=== PATIENT | female | born 1985 | race Caucasian/White ===

== ENCOUNTER 2018-11-29 07:54 | Emergency (ER) | payer OTHER ==
--- NOTE | 2018-11-29 08:15 | ED ---
Lower Extremity - HPI Summary HPI Summary: The patient is a 33 y/o F presenting to [facility] accompanied by partner with a chief complaint of sudden onset LLE pain radiating throughout the leg with the worse pain near the distal leg and calf starting this morning when she woke up at 0700. She reports that she has also noticed that the veins in her left leg near the knee have been more superficial, and there has been warmth and tingling to the area. Although the veins have been present her whole life, she noticed recent worsening. There are no new insect bites or scratches on the leg. Currently, the cramping pain is rated 5/10 in severity, and she states that the pain has decreased since onset this morning. There are no aggravating or alleviating factors, and she did not take any medications to attempt to relieve the pain [employer]. She denies palpitations, CP, SOB, pain with breathing, edema, numbness in the LLE, difficulty with ambulation, fever, chills, erythema of eyes, sore throat, cough, abdominal pain, N/V, dysuria, hematuria, rash, and dizziness. She notes that she did sit for about 8 or 9 hours yesterday, but she denies any recent long travel. About a month and half ago, she had her oral control, Enskyce, changed to continuous use from three weeks of use with fourth week as placebo pill due to migraines and nausea. She also reports current Cefdinir use for otitis media. Currently uses Imitrex for migraines and Fluoxetine for depression. FHx DVTs in mother. Nonsmoker, no EtOH, no substance use. - History of Current Complaint Chief Complaint: EDExtremityLower Stated Complaint: PAIN IN LEG PER PT Time Seen by Provider: 11/29/18 08:09 Hx Obtained From: Patient Hx Last Menstrual Period: 24 DAYS AGO Mechanism Of Injury: Unknown - woke up with pain Onset of Pain: Hours Onset/Duration: Hours - since 0700 this morning Severity Initially: Moderate Severity Currently: Mild Pain Intensity: 5 Pain Scale Used: 0-10 Numeric Timing: Constant, Lasting Hours Location: Other - throughout LLE with worse pain the distal left leg and calf Character Of Pain: Throbbing - cramping Associated Signs And Symptoms: Positive: Other - POSITIVE: tingling and warmth near the right knee with increased visibility of superficial veins; NEGATIVE: palpitations, CP, SOB, pain with breathing, edema, numbness in the LLE, difficulty with ambulation, chills, erythema of eyes, sore throat, cough, N/V, dysuria, hematuria, rash. Negative: Fever, Dizziness, Abdominal Pain Aggravating Factor(s): Nothing Alleviating Factor(s): Nothing Able to Bear Weight: Yes - Allergies/Home Medications Allergies/Adverse Reactions: Allergies Allergy/AdvReac Type Severity Reaction Status Date / Time Sulfa (Sulfonamide Allergy Hives Verified 11/29/18 08:03 Antibiotics) Home Medications: Home Medications Cefdinir [Cefdinir 300 MG CAP] 300 mg PO BID 11/29/18 [History Confirmed ] Desogestrel-Ethinyl Estradiol [Enskyce 28 Tablet] 1 each PO DAILY 11/29/18 [ History Confirmed 11/29/18] SUMAtriptan TAB* [Imitrex TAB*] 50 mg PO DAILY PRN 11/29/18 [History Confirmed 11/29/18] PMH/Surg Hx/FS Hx/Imm Hx Endocrine/Hematology History: Denies: Hx Diabetes Cardiovascular History: Denies: Hx Hypertension Respiratory History: Denies: Hx Asthma Sensory History: Denies: Hx Deafness Opthamlomology History: Reports: Hx Contacts or Glasses Neurological History: Reports: Hx Migraine - medicated with Imitrex - Surgical History Surgical History: None Surgery Procedure, Year, and Place: none Infectious Disease History: No Infectious Disease History: Denies: Hx Clostridium Difficile, Traveled Outside the [place] in Last 30 Days - Family History Known Family History: Positive: Other - DVTs in mother - Social History Alcohol Use: None Hx Substance Use: No Substance Use Type: Reports: None Hx Tobacco Use: No Smoking Status (MU): Never Smoked Tobacco Do You Chew or Dip Tobacco: No Have You Chewed or Dipped Tobacco in the LAST YEAR: No Have You Smoked in the Last Year: No Review of Systems Negative: Fever, Chills Negative: Erythema Negative: Sore Throat Negative: Chest Pain Positive: Other - NEGATIVE: pain with breathing. Negative: Shortness Of Breath , Cough Negative: Abdominal Pain, Vomiting, Nausea Negative: dysuria, hematuria Positive: Myalgia - pain radiating throughout LLE worst in the distal portion and calf, Other - NEGATIVE: difficulty with ambulation. Negative: Edema Positive: Other - increased visibility with veins in LLE with warmth . Negative : Rash Neurological: Other - POSITIVE: tingling near left knee at site of superficial veins; NEGATIVE: dizziness Negative: Numbness - in LLE All Other Systems Reviewed And Are Negative: Yes Physical Exam - Summary Physical Exam Summary: Constitutional: Well-developed, Well-nourished, Alert. (-) Distressed Skin: Engorgement of the superficial veins in the leg on the left side. Warm, Dry. HENT: Normocephalic; Atraumatic Eyes: Conjunctiva normal Neck: Musculoskeletal ROM normal neck. (-) JVD, (-) Stridor, (-) Tracheal deviation Cardio: Rhythm regular, rate normal, Heart sounds normal; Intact distal pulses; The pedal pulses are 2+ and symmetric. Radial pulses are 2+ and symmetric. (-) Murmur Pulmonary/Chest wall: Effort normal. (-) Respiratory distress, (-) Wheezes, (-) Rales Abd: Soft, (-) tenderness, (-) Distension, (-) Guarding, (-) Rebound Musculoskeletal: (-) Edema Lymph: (-) Cervical adenopathy Neuro: Alert, Oriented x3 Psych: Mood and affect Normal Triage Information Reviewed: Yes Vital Signs On Initial Exam: Initial Vitals Temp Pulse Resp BP Pulse Ox 99.1 F 102 18 138/93 99 11/29/18 08:01 11/29/18 08:01 11/29/18 08:01 11/29/18 08:01 11/29/18 08:01 Vital Signs Reviewed: Yes Diagnostics - Vital Signs Vital Signs Temp Pulse Resp BP Pulse Ox 11/29/18 08:01 99.1 F 102 18 138/93 99 - Laboratory Result Diagrams: 11/29/18 08:46 11/29/18 08:46 Lab Statement: Any lab studies that have been ordered have been reviewed, and results considered in the medical decision making process. - Ultrasound LLE DVT US Ultrasound Interpretation Completed By: Radiologist Summary of Ultrasound Findings: No left lower extremity deep vein thrombosis. ED physician has reviewed this report. Re-Evaluation - Re-Evaluation First Eval Re-Evaluation Time: 09:45 Comment: I discussed results with patient without concern for DVT. We also discussed discharge plan. Lower Extremity Course/Dx - Course Course Of Treatment: The patient is a 33 y/o F presenting to [facility] accompanied by partner with a chief complaint of sudden onset LLE pain radiating throughout the leg with the worse pain near the distal leg and calf starting this morning when she woke up at 0700. She reports that she has also noticed that the veins in her left leg near the knee have been more superficial, and there has been warmth and tingling to the area. She denies palpitations, CP, SOB, pain with breathing, edema, numbness in the LLE, difficulty with ambulation, fever, chills , erythema of eyes, sore throat, cough, abdominal pain, N/V, dysuria, hematuria , rash, and dizziness. No new insect bites or scratches on the leg, and no recent long travel, although she sat for 8 or 9 hours yesterday. Recent change in Enskyce oral control to continuous use starting a month and a half ago. She also reports current Cefdinir use for otitis media. Currently uses Imitrex for migraines and Fluoxetine for depression. FHx DVTs in mother. Nonsmoker, no EtOH, no substance use. Upon physical exam, the patient exhibits engorgement of the superficial veins in the leg on the left side. Current symptoms suggest sciatic nerve compression versus DVT. Blood work reveals no significant abnormalities. LLE DVT US impression: No left lower extremity deep vein thrombosis. There are no signs of DVT or cellulitis. There is no palpable tenderness. I suspect nerve impingement secondary to sitting in a cramped camping chair that was poking her, and she didnt get up for 8 to 9 hours. She is diagnosed with left-sided sciatica. She will follow up with her primary care provider in 2-3 days. I recommended Motrin for the pain. She agrees with this plan and understands the need for return to the ED for any new or worsening symptoms. - Diagnoses Provider Diagnoses: Left sided sciatica Discharge - Sign-Out/Discharge Documenting (check all that apply): Patient Departure - Patient will be discharged home. Patient Received Moderate/Deep Sedation with Procedure: No - Discharge Plan Condition: Good Disposition: HOME Patient Education Materials: Sciatica (ED) Referrals: Mode Navarro DO [Primary Care Provider] - 3 Days Additional Instructions: Take Tylenol or Motrin as needed. Follow up with your primary care provider in 2-3 days. RETURN TO THE EMERGENCY DEPARTMENT FOR ANY NEW OR WORSENING SYMPTOMS. - Billing Disposition and Condition Condition: GOOD Disposition: Home - Attestation Statements Document Initiated by Ricky: Yes Documenting Scribe: Kendy Summers Provider For Whom Ricky is Documenting (Include Credential): Dr. Geovany Maria MD Scribe Attestation: Kendy Quijano scribed for Dr. Geovany Maria MD on 12/13/18 at 0723. Scribe Documentation Reviewed: Yes Provider Attestation: The documentation as recorded by the Kendy heath accurately reflects the service I personally performed and the decisions made by me, Dr. Geovany Maria MD Status of Scribe Document: Viewed
[2018-11-29 08:57] LABS: Hematocrit 40 % (35-47); Hemoglobin 13.8 g/dL (12.0-16.0); Mean Corpuscular HGB Conc 35 g/dL (31-36); Mean Corpuscular Hemoglobin 31 pg (27-31); Mean Corpuscular Volume 89 fL (80-97); Platelet Count 199 10^3/uL (150-450); Red Cell Distribution Width 13 % (10-15); White Blood Count 5.3 10^3/uL (3.5-10.8)
[2018-11-29 09:12] LABS: Albumin 3.7 g/dL (3.2-5.2); Albumin/Globulin Ratio 1.3 (1-3); BUN/Creatinine Ratio 12.5 (8-20); Calcium 8.8 mg/dL (8.6-10.3); EGFR African American 113.6 (>60); EGFR Non-African American 93.9 (>60); Globulin 2.8 g/dL (2-4); Potassium 3.9 mmol/L (3.5-5.0); Total Bilirubin 0.5 mg/dL (0.2-1.0); Total Protein 6.5 g/dL (6.4-8.9)
--- OUTSIDE RECORDS SUMMARY | 2018-11-29 09:45 | XMS REPORT | Continuity of Care Document ---
:1985 External Reference #:[id number] Author Name Maggy Christian Care Team Providers Name Role Phone Mode Navarro DO Primary Care Physician Unavailable Payers Date Identification Numbers Payment Provider Subscriber Policy Number: [id number] [employer] Group Number: [id number] [address] PayID: [id number] [place] [address] Family History Date Family Member(s) Observation Comments Father Alive And Well Mother Thyroid Disease Mother Deep Venous Thrombosis (DVT) Paternal Grandfather Lung Cancer Paternal Grandfather Diabetes Paternal Grandmother Breast Cancer Maternal Grandmother Skin Cancer Social History Type Date Description Comments Sex Unknown Lives With Tobacco Use Start: Unknown Never Smoked Cigarettes Smoking Status Reviewed: 11/23/18 Never Smoked Cigarettes ETOH Use Denies alcohol use Tobacco Use Start: Unknown Patient has never smoked Exercise Exercises sporadically yoga, walking Type/Frequency occasionally Allergies, Adverse Reactions, Alerts Active Allergies Reaction Severity Comments Date Sulfa Antibiotics 11/23/2018 Medications Active Medications SIG Qnty Indications Ordering Provider Date Prozac 1 by mouth every Unknown 20mg Capsules day Enskyce one tablet daily Unknown 0.15-30mg-mcg skipping placebo Tablets tablets Fluticasone Propionate 2 sprays each Unknown nostril daily as 50mcg/Act Suspension needed Cefdinir Take 1 Capsule By Unknown 300mg Capsules Mouth Two Times Daily For 10 Days Sumatriptan Succinate Take 1 Tablet By Unknown 50mg Mouth as Needed Tablets For Migraine Headache, May Repeat Once After 2 Hours. Maximum 3 Times Per Week Triamcinolone Acetonide Apply A Thin Unknown Layer To Affected 0.1% Ointment Area(S) Two Times Daily History Medications Magnesium Sulfate Cream prn Unknown - 11/23/2018 Vital Signs Date Vital Result Comment 11/23/2018 3:49pm Height 67 inches 5'7" Weight 157.12 lb Heart Rate 86 /min BP Systolic 129 mmHg BP Diastolic 85 mmHg O2 % BldC Oximetry 97 % BMI (Body Mass Index) 24.6 kg/m2 Last Menstrual Period [id number]
--- OUTSIDE RECORDS SUMMARY | 2018-11-29 09:45 | XMS REPORT | Continuity of Care Document ---
:1985 External Reference #:[id number] Author Name Maggy Christian Care Team Providers Name Role Phone Mode Navarro DO Primary Care Physician Unavailable Payers Date Identification Numbers Payment Provider Subscriber Policy Number: [id number] [employer] Group Number: [id number] [address] PayID: [id number] [place] [address] Family History Date Family Member(s) Observation Comments [...] Mass Index) 24.6 kg/m2 Last Menstrual Period [id number]
[2018-11-29 09:55] VITALS: BP 133/92
== END 2018-11-29 09:54 | disposition home or self-care (01) ==
LOC: ED 07:54
DX: M54.32 Sciatica, left side (principal); Z88.2 Allergy status to sulfonamides; Z83.2 Family history of diseases of the blood and blood-forming organs and certain disorders involving the immune mechanism
CPT/HCPCS: 36415; 80053; 85027; 99282

== ENCOUNTER 2019-01-18 18:43 | Emergency (ER) | payer OTHER ==
--- NOTE | 2019-01-18 18:47 | UC ---
Skin Complaint HPI - HPI Summary HPI Summary: 33 yo female presents with bug bite to right forearm. She tells me that 2 days ago she was bird [place] in [place] and something bite her right forearm. Yesterday she had a red ring around the area. Today the red ring is gone, but there is a faint bug bite there. She showed a family member the rash and they were concerned for tick bite/lyme prompting pt's visit to [facility]. She does not recall seeing a tick attached. No other symptoms. - History of Current Complaint Time Seen by Provider: 01/18/19 18:47 Stated Complaint: INSECT BITE Hx Obtained From: Patient Hx Last Menstrual Period: 24 DAYS AGO Onset/Duration: Sudden Onset Current Severity: None - Allergy/Home Medications Allergies/Adverse Reactions: Allergies Allergy/AdvReac Type Severity Reaction Status Date / Time Sulfa (Sulfonamide Allergy Hives Verified 01/18/19 18:52 Antibiotics) Home Medications: Home Medications Ibuprofen TAB* [Motrin TAB* 600 MG] 600 mg PO Q8H PRN 01/18/19 [History Confirmed 01/18/19] PMH/Surg Hx/FS Hx/Imm Hx Neurological History: Migraine Psychological History: Anxiety, Depression - Surgical History Surgical History: None Surgery Procedure, Year, and Place: none - Family History Known Family History: Positive: Other - DVTs in mother - Social History Lives: With Family Alcohol Use: None Substance Use Type: None Smoking Status (MU): Never Smoked Tobacco Have You Smoked in the Last Year: No Review of Systems All Other Systems Reviewed And Are Negative: Yes Constitutional: Positive: Negative Skin: Positive: Other - Bug bite Respiratory: Positive: Negative Cardiovascular: Positive: Negative Neurovascular: Positive: Negative Neurological: Positive: Negative Psychological: Positive: Negative Physical Exam - Summary Physical Exam Summary: GENERAL: NAD. WDWN. No pain distress. SKIN: RIGHT forearm: proximal volar aspect with 3mm area of faint erythema and central bug bite. No streaking, drainage, or pain. CHEST: No accessory muscle use. Breathing comfortably and in no distress. CV: Pulses intact. Cap refill <2seconds NEURO: Alert. PSYCH: Age appropriate behavior. Triage Information Reviewed: Yes Vital Signs: Vital Signs: Temp Pulse Resp BP Pulse Ox 98.1 F 90 16 133/91 100 01/18/19 18:49 08/13/19 18:49 01/18/19 18:49 01/18/19 18:49 01/18/19 18:49 Vital Signs Reviewed: Yes Course/Dx - Course Course Of Treatment: Pt showed me a picture of the red ring around the bug bite that she had yesterday and it does appear to look like a bull's eye, but the clinical history does not support a tick bite. I would not except an EM rash to appear this early after a tick bite and she is confident that no insect/tick was attached to her forearm -- also the red ring is gone today----all of these are inconsistent with tick bites and EM rash. I discussed the above with the pt, but she is requesting prophylactic doxy. - Diagnoses Provider Diagnosis: Bug bite Discharge - Sign-Out/Discharge Documenting (check all that apply): Patient Departure All imaging exams completed and their final reports reviewed: No Studies - Discharge Plan Condition: Stable Disposition: HOME Patient Education Materials: Lyme Disease (ED), Tick Bite (ED) Referrals: Mode Navarro DO [Primary Care Provider] - Additional Instructions: If you develop a fever, shortness of breath, chest pain, new or worsening symptoms - please call your PCP or go to the ED immediately. Your bite does not appear consistent with a tick bite - Billing Disposition and Condition Condition: STABLE Disposition: Home
[2019-01-18 18:51] VITALS: BP 133/91
[2019-01-18] MEDS ORDERED: DOXYcycline CAP(*) 100 MG PO ONE (18:58)
--- OUTSIDE RECORDS SUMMARY | 2019-01-18 23:30 | XMS REPORT | Continuity of Care Document ---
:1985 External Reference #:[id number] Author Name Mode Navarro D.O. Address [address] [facility] [place] [address] Care Team Providers Name Role Phone HCP given Primary Care Physician Unavailable Payers Date Identification Numbers Payment Provider Subscriber Effective: Policy Number: [id number] [facility] Maggy Best 2015 Ind/Ppo/Hmo/Pos Expires: 2017 Group Name: [facility] [address] [address] PayID: [id number] [place] [address] Effective: 2017 Policy Number: [id number] [facility] Maggy Best PayID: [id number] [address] [place] [address] Problems Active Problems Provider Date Panic disorder without agoraphobia Juan Miguel Mcneil M.D. Onset: 01/25/2014 Generalized anxiety disorder Juan Miguel Mcneil M.D. Onset: 01/25/2014 Family History Date Family Member(s) Observation Comments General Breast Cancer MGM ~age 70s, M aunt at age 41, P aunt in her 60s Mother Allergic Rhinitis Children None Siblings 2 brothers (both A&W) Paternal Grandfather Diabetes, Nos Maternal Grandmother Breast Cancer Paternal Aunts Breast Cancer Maternal Aunts Breast Cancer Social History Type Date Description Comments Sex Unknown Education Highest Level started post grad Completed College studies in Social Work at [employer] but left the program as she found it too stressful; as of 01/19 is taking graphic design classes at 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 Work Status Currently Working Hand Dominance 08/30/2018 Right-handed Tobacco Use Reviewed: 01/25/14 Never Smoked Cigarettes Smoking Status Reviewed: 01/04/19 Never Smoked Cigarettes ETOH Use 01/25/2014 Denies alcohol use Recreational Drug Use 01/25/2014 Denies Drug Use Tobacco Use Start: Unknown Patient has never smoked Exercise Type/Frequency Exercises regularly runs, lifts weights, yoga Sun Exposure Uses sunscreen Seat Belt/Car Seat Seat Belt Use - Yes Currently Active Patient is currently sexually active Contraceptive Methods BCP Age 1st [place] 20 Years Old # Partners in a Lifetime 01/25/2014 Partners 1-5 reports 4 partners in last 5yrs as of 01/25/14 STD's 01/25/2014 No STD History Additional Info Sexual preference is men Allergies, Adverse Reactions, Alerts Active Allergies Reaction Severity Comments Date Sulfa Hives 01/25/2014 Medications Active Medications SIG Qnty Indications Ordering Provider Date Sumatriptan 1 by mouth at 9tabs G43.109 Mode Navarro, 09/09/2018 Succinate onset of D.O. 50mg migraine; may Tablets repeat once after 2 hours if needed; max 3x/wk Magnesium Oxide Take 1 To 4 360tabs Mode Navarro, 08/13/2018 Tablets By Mouth D.O. 400(241.3mg) mg Every Night AT Tablets Bedtime as Directed Fluticasone Powderly 2 Sprays 48units Mode Navarro, 04/09/2018 Propionate Into Each Nostril D.O. 50mcg/Act One Time Daily Suspension Fluoxetine HCL take 1 capsule 90caps Juan Miguel Mcneil, 08/27/2017 20mg every morning M.DDuarn Capsules Enskyce Take 1 Tablet By Unknown 0.15-30mg-mcg Mouth Every Day Tablets History Medications Cefdinir 1 cap by mouth 20caps H66.92 Tarun, 11/18/2018 - 300mg Capsules twice a day x10 Samuel Bullard 01/03/2019 days Rizatriptan Benzoate take 5mg at 4tabs G43.109 Melanie 08/30/2018 - 5mg onset of Mode D.ODuran 09/09/2018 Tablets headache. if headache persists, repeat no sooner than 2 hours later Tobradex 1 drop both eyes 5ml [facility], 07/19/2018 - 0.3-0.1% Suspension three times a Mode, D.O. 07/24/2018 day for 5 days or 1 day after symptoms resolve. Augmentin 1 cap by mouth 20tabs [facility], 07/19/2018 - 875-125mg Tablets twice a day Mode, D.O. 07/29/2018 Co Q 10 1 by mouth [facility] 03[facility] - 100mg Capsules day Mode, D.O. 03/01/2018 Flonase Allergy Relief 2 sprays twice a 47.400ml [facility], 12/08/2017 - day until Mode D.O. 01/07/2018 50mcg/Act Suspension better. Fluoxetine HCL 1 by mouth 45caps [facility], 10/12/2017 - 10mg Capsules alternate with Mode, D.O. 04/09/2018 20mg every other day. Clonazepam 1 tablets up to 14tabs [facility], 07/24/2017 - 0.5mg Tablets 3x/day for Samuel Bullard 12/07/2017 episodic anxiety Cyclobenzaprine HCL take 1-2 tablet 45tabs [facility], 07/24/2017 - 5mg by mouth at Samuel Bullard 01/03/2019 Tablets bedtime for back pain,will make drowsy Fluoxetine HCL 1 by mouth every 90caps [facility], 07/02/2017 - 10mg Capsules day Mode, D.O. 08/27/2017 Methylprednisolone 6 tabs on day 1; 21tabs J20.9 [facility], 04/10/2016 - 4mg then 5 tabs Mode, D.O. 05/04/2016 Tablets day2; then 4 tabs ay3; then 3 tabs day4; then 2 tabs day 5; then 1 tab day 6 Azithromycin take 2 tablets 6tabs J20.9 [facility], 04/10/2016 - 250mg Tablets by mouth one Mode, D.O. 04/15/2016 time on the first day then take 1 tablet by mouth daily for 4 days PT For Left Leg Pain please evaluate 719.46 Tarnu, 06/30/2014 - (Suspected Itb Syndrome) and treatJuan Miguel M.D. 10/26/2014 instruct in hep, modalities prn Fluoxetine HCL 1 by mouth every 30caps Tarun, 01/25/2014 - 20mg Capsules day, for Samuel Bullard 07/02/2017 anxiety; appt needed before next refill Nystatin apply to 30gm 112.0 Sil[place], 01/25/2014 - [id number]/GM Cream affected area on Samuel Bullard 06/29/2014 lips three times a day as needed Tri-Linyah daily Unknown 01/24/2014 - 0.18/0.215/0.25 10/26/2014 mg-35 mcg Tablets Clindamycin Phosphate use topically, 60ml L70.9 Tarun, 01/24/2014 - 1% once daily, for Samuel Bullard 04/25/2018 Lotion facial acne Fluticasone Propionate 2 sprays into 1units Unknown 01/24/2014 - each nostril 06/29/2014 50mcg/Act Suspension every day for nasal congestion. jud allergies. rinse mouth post Clonazepam 1 by mouth three 30tabs [facility], 12/20/2013 - 0.5mg Tablets times a day as Samuel Bullard 05/29/2017 needed for anxiety/panic Clobetasol Propionate apply nightly to 698.3 Mar, 11/21/2013 - 0.05% involved area on MD Roberto 06/29/2014 Ointment genitals (for lichen simplex chronicus) Prozac 1 by mouth every 300.00 Unknown 04/08/2013 - 20mg Capsules day 01/25/2014 300.02 300.01 Tri-Previfem as directed Unknown - 08/03/2017 0.18/0.215/0.25 mg-35 mcg Tablets Immunizations CPT Code Status Date Vaccine Lot # [id number] Given 04/09/2018 Influenza Virus Vaccine, Quadrivalent, Split, [id number] Preservative Free 92508 Given 05/21/2017 Influenza Virus Vaccine, Quadrivalent, Split, Preservative Free 03643 Given 05/05/2016 Influenza Virus Vaccine, Quadrivalent, Split, [id number] Preservative Free 00386 Given 07/09/2012 Adacel or Boostrix, TDaP [id number] Refused 05/04/2015 Influenza Vaccine Split Virus Preservative Free Im Use Vital Signs Date Vital Result Comment 01/04/2019 10:51am BP Systolic 128 mmHg BP Diastolic 68 mmHg 11/18/2018 3:47pm BP Systolic 126 mmHg BP Diastolic 72 mmHg Body Temperature 98.9 F Weight 159.00 lb 09/24/2018 8:42am BP Systolic 110 mmHg BP Diastolic 78 mmHg Weight 155.00 lb 08/30/2018 8:56am BP Systolic 126 mmHg BP Diastolic 78 mmHg Weight 156.50 lb 07/19/2018 8:42am BP Systolic 120 mmHg BP Diastolic 80 mmHg Body Temperature 98.2 F Weight 155.00 lb 06/18/2018 8:42am BP Systolic 120 mmHg BP Diastolic 80 mmHg Height 67 inches 5'7" Weight 157.00 lb BMI (Body Mass Index) 24.6 kg/m2 05/17/2018 1:07pm BP Systolic 120 mmHg BP Diastolic 80 mmHg Weight 158.00 lb 04/26/2018 2:36pm BP Systolic 122 mmHg BP Diastolic 80 mmHg Weight 156.00 lb 04/09/2018 11:48am BP Systolic 120 mmHg BP Diastolic 82 mmHg Weight 156.00 lb 03/01/2018 4:12pm BP Systolic 122 mmHg BP Diastolic 80 mmHg Weight 156.00 lb 02/22/2018 3:02pm BP Systolic 120 mmHg BP Diastolic 60 mmHg Weight 156.00 lb 12/08/2017 3:37pm BP Systolic 128 mmHg BP Diastolic 80 mmHg Height 67 inches 5'7" Weight 153.00 lb BMI (Body Mass Index) 24.0 kg/m2 10/12/2017 10:26am BP Systolic 122 mmHg BP Diastolic 80 mmHg Weight 152.00 lb with shoes 07/24/2017 5:01pm BP Systolic 132 mmHg BP Diastolic 70 mmHg 07/02/2017 10:45am BP Systolic 128 mmHg BP Diastolic 84 mmHg Height 67 inches 5'7" Weight 154.00 lb BMI (Body Mass Index) 24.1 kg/m2 05/05/2016 5:03pm BP Systolic 138 mmHg BP Diastolic 80 mmHg 04/10/2016 11:32am BP Systolic 116 mmHg BP Diastolic 76 mmHg Body Temperature 98.3 F Weight 150.00 lb w/shoes 10/31/2015 4:52pm BP Systolic 120 mmHg BP Diastolic 80 mmHg Height 67 inches 5'7" Weight 152.00 lb BMI (Body Mass Index) 23.8 kg/m2 09/19/2015 11:52am BP Systolic 120 mmHg BP Diastolic 80 mmHg Body Temperature 98.5 F Weight 152.00 lb 06/27/2015 4:02pm BP Systolic 135 mmHg BP Diastolic 93 mmHg Heart Rate 84 /min Body Temperature 98.1 F Weight 150.00 lb 05/04/2015 8:44am BP Systolic 126 mmHg BP Diastolic 80 mmHg Height 67 inches 5'7" Weight 149.00 lb BMI (Body Mass Index) 23.3 kg/m2 10/27/2014 3:30pm BP Systolic 124 mmHg BP Diastolic 78 mmHg Height 67.25 inches 5'7.25" Weight 146.00 lb BMI (Body Mass Index) 22.7 kg/m2 06/30/2014 3:08pm BP Systolic 130 mmHg BP Diastolic 86 mmHg Weight 145.00 lb 01/25/2014 2:31pm BP Systolic 134 mmHg BP Diastolic 86 mmHg BP Systolic Recheck 138 mmHg L arm lying BP Diastolic Recheck 82 mmHg L arm lying Heart Rate 68 /min reg Respiratory Rate 12 /min not laboured Height 67 inches 5'7" Weight 144.00 lb BMI (Body Mass Index) 22.6 kg/m2 Last Menstrual Period [id number] Results Test Date Facility Test Result H/L Range Note CBC No Diff 11/29/2018 [facility] White Blood 5.3 10^3/uL Normal 3.5- 10.8 [phone] Count Red Blood Count 4.50 10^6/uL Normal 3.70-4.87 Hemoglobin 13.8 g/dL Normal 12.0-16.0 Hematocrit 40 % Normal 35-47 Mean Corpuscular Volume 89 fL Normal 80-97 Mean Corpuscular Hemoglobin 31 pg Normal 27-31 Mean Corpuscular HGB Conc 35 g/dL Normal 31-36 Red Cell Distribution Width 13 % Normal 10-15 Platelet Count 199 10^3/uL Normal 150-450 Mean Platelet Volume 9.0 fL Normal 7.4-10.4 Comp Metabolic Panel 11/29/2018 [facility] Sodium 139 mmol/L Normal 135-145 [phone] Potassium 3.9 mmol/L Normal 3.5-5.0 Chloride 106 mmol/L Normal 101-111 Co2 Carbon Dioxide 27 mmol/L Normal 22-32 Anion Gap 6 mmol/L Normal 2-11 Glucose 91 mg/dL Normal 70-100 Blood Urea Nitrogen 9 mg/dL Normal 6-24 Creatinine 0.72 mg/dL Normal 0.51-0.95 BUN/Creatinine Ratio 12.5 Normal 8-20 Calcium 8.8 mg/dL Normal 8.6-10.3 Total Protein 6.5 g/dL Normal 6.4-8.9 Albumin 3.7 g/dL Normal 3.2-5.2 Globulin 2.8 g/dL Normal 2-4 Albumin/Globulin Ratio 1.3 Normal 1-3 Total Bilirubin 0.50 mg/dL Normal 0.2-1.0 Alkaline Phosphatase 47 U/L Normal 34-104 Alt 13 U/L Normal 7-52 Ast 15 U/L Normal 13-39 Egfr Non- 93.9 >60 Egfr 113.6 >60 1 Laboratory test 02/22/2018 [facility] Magnesium 2.2 mg/dL Normal 1.9- 2.7 finding [phone] TSH (Thyroid Stim Horm) 2.82 mcIU/mL Normal 0.34-5.60 Vitamin B12 388 pg/mL Normal 180-914 2 Celiac Panel 02/22/2018 [facility] Tissue Transglutaminase IgA Ab <1.2 U/mL 3 [phone] Immunoglobulin A 120 mg/dL 61 - 356 Celiac Interpretation See Comment 4 Celiac Hla 02/22/2018 [facility] Hla-Dqa1 SEE BELOW 5 [phone] Hla-DQB1 SEE BELOW 6 Celiac Gene Pairs Present? No Celiac Gene Interpretation See Comment 7 Comp Metabolic Panel 02/22/2018 [facility] Sodium 137 mmol/L Normal 135-145 [phone] Potassium 3.9 mmol/L Normal 3.5-5.0 Chloride 103 mmol/L Normal 101-111 Co2 Carbon Dioxide 27 mmol/L Normal 22-32 Anion Gap 7 mmol/L Normal 2-11 Glucose 96 mg/dL Normal 70-100 Blood Urea Nitrogen 10 mg/dL Normal 6-24 Creatinine 0.71 mg/dL Normal 0.51-0.95 BUN/Creatinine Ratio 14.1 Normal 8-20 Calcium 8.7 mg/dL Normal 8.6-10.3 Total Protein 6.7 g/dL Normal 6.4-8.9 Albumin 4.1 g/dL Normal 3.2-5.2 Globulin 2.6 g/dL Normal 2-4 Albumin/Globulin Ratio 1.6 Normal 1-3 Total Bilirubin 0.30 mg/dL Normal 0.2-1.0 Alkaline Phosphatase 49 U/L Normal 34-104 Alt 14 U/L Normal 7-52 Ast 14 U/L Normal 13-39 Egfr Non- 96.0 >60 Egfr 116.2 >60 8 CBC Auto Diff 02/22/2018 [facility] White Blood 8.6 10^3/uL Normal 3.5-10.8 [phone] Count Red Blood Count 4.41 10^6/uL Normal 4.00-5.40 Hemoglobin 13.6 g/dL Normal 12.0-16.0 Hematocrit 40 % Normal 35-47 Mean Corpuscular Volume 90 fL Normal 80-97 Mean Corpuscular Hemoglobin 31 pg Normal 27-31 Mean Corpuscular HGB Conc 34 g/dL Normal 31-36 Red Cell Distribution Width 13 % Normal 10.5-15 Platelet Count 227 10^3/uL Normal 150-450 Mean Platelet Volume 9.9 um3 Normal 7.4-10.4 Abs Neutrophils 5.6 10^3/uL Normal 1.5-7.7 Abs Lymphocytes 2.3 10^3/uL Normal 1.0-4.8 Abs Monocytes 0.5 10^3/uL Normal 0-0.8 Abs Eosinophils 0.2 10^3/uL Normal 0-0.6 Abs Basophils 0.1 10^3/uL Normal 0-0.2 Abs Nucleated RBC 0 10^3/uL Granulocyte % 64.4 % Normal 38-83 Lymphocyte % 26.6 % Normal 25-47 Monocyte % 5.5 % Normal 0-7 Eosinophil % 2.9 % Normal 0-6 Basophil % 0.6 % Normal 0-2 Nucleated Red Blood Cells % 0.1 Mumps Igg 12/26/2016 [facility] Mumps Virus IgG Antibody Positive Normal 9 [phone] Mumps IgG Antibody Index 1.9 Normal 10 Laboratory test 12/26/2016 [facility] Rubella Immune IU/mL Normal Immune finding [phone] Screen Rubeola Measles 12/26/2016 [facility] Rubeola Positive Normal 11 Igg AB [phone] (Measles) IgG Antibody Rubeola IgG Antibody Index 4.4 Normal 12 Laboratory test finding 09/19/2015 In House Culture Throat Rapid negative Screen Culture Throat negative Vitamin D, 25 01/25/2014 [facility] 25-Hydroxy Vitamin <4.0 ng/mL Normal Hydroxy [phone] D2 25-Hydroxy Vitamin D3 42 ng/mL Normal 25-Hydroxy Vitamin D Total 42 ng/mL Normal 13 Laboratory test 01/25/2014 [facility] TSH (Thyroid 2.28 Normal 0.34- 5.60 finding [phone] Stimulating IU/mL Horm) CBC Auto Diff 01/25/2014 [facility] White Blood 4.7 Low 4.8-10.8 [phone] Count 10^3/uL Red Blood Count 4.42 10^6/uL Normal 4.0-5.4 Hemoglobin 13.6 g/dL Normal 12.0-16.0 Hematocrit 40 % Normal 35-47 Mean Corpuscular Volume 91 fL Normal 80-97 Mean Corpuscular Hemoglobin 31 pg Normal 27-31 Mean Corpuscular HGB Conc 34 g/dL Normal 31-36 Red Cell Distribution Width 14 % Normal 10.5-15 Platelet Count 172 10^3/uL Normal 150-450 Mean Platelet Volume 9 um3 Normal 7.4-10.4 Abs Neutrophils 2.2 10^3/uL Normal 1.5-7.7 Abs Lymphocytes 1.9 10^3/uL Normal 1.0-4.8 Abs Monocytes 0.3 10^3/uL Normal 0-0.8 Abs Eosinophils 0.2 10^3/uL Normal 0-0.6 Abs Basophils 0 10^3/uL Normal 0-0.2 Abs Nucleated RBC 0 10^3/uL Normal Granulocyte % 47.4 % Normal 38-83 Lymphocyte % 39.8 % Normal 25-47 Monocyte % 7.1 % Normal 1-9 Eosinophil % 4.9 % Normal 0-6 Basophil % 0.8 % Normal 0-2 Nucleated Red Blood Cells % 0 Normal Basic Metabolic Panel 01/25/2014 [facility] Sodium 138 mmol/L Normal 133-145 [phone] Potassium 3.8 mmol/L Normal 3.7-5.6 Chloride 105 mmol/L Normal 101-111 Co2 Carbon Dioxide 30 mmol/L Normal 22-32 Anion Gap 3 mmol/L Normal 2-11 Glucose 97 mg/dL Normal 70-100 Blood Urea Nitrogen 9 mg/dL Normal 6-24 Creatinine 0.85 mg/dL Normal 0.51-0.95 BUN/Creatinine Ratio 10.6 Normal 8-20 Calcium 8.9 mg/dL Normal 8.6-10.3 Egfr Non- 80.2 Normal >60 Egfr 103.2 Normal >60 14 1 Because ethnic data is not always readily available, this report includes an eGFR for both -Americans and non- Americans. The National Kidney Disease Education Program (NKDEP) does not endorse the use of the MDRD equation for patients that are not between the ages of 18 and 70, are , have extremes of body size, muscle mass, or nutritional status, or are non- or non-. According to the National Kidney Foundation, irrespective of diagnosis, the stage of the disease is based on the level of kidney function: Stage Description GFR(mL/min/1.73 m(2)) 1 Kidney damage with normal or decreased GFR 90 2 Kidney damage with mild decrease in GFR 60-89 3 Moderate decrease in GFR 30-59 4 Severe decrease in GFR 15-29 5 Kidney failure <15 (or dialysis) 2 Normal Range 180 to 914 Indeterminate Range 145 to 180 Deficient Range <145 3 REFERENCE VALUE <4.0 (Negative) Test Performed by: [place] [address] 4 Negative serology. Celiac disease unlikely. However, approximately 10% of patients with celiac disease are seronegative. Also, patients who are already adhering to a gluten-free diet may be seronegative. If celiac disease is highly clinically suspected, consider HLA-DQ typing. Test Performed by: [place] [address] 5 RESULT: 05 REFERENCE VALUE Not Applicable 6 RESULT: 03:01,03:01 DQ Serologic Equivalent: 7,7 REFERENCE VALUE Not Applicable 7 The absence of HLA celiac permissive genes would make the presence of celiac disease unlikely. ADDITIONAL INFORMATION Method: Molecular typing of HLA antigens performed using reverse SSOP and/or SSP methods, reported as serological equivalents and low to medium resolution molecular values. Performing Laboratory CLIA# [id number] Test Performed by: [place] [id number] 8 Because ethnic data is not always readily available, this report includes an eGFR for both -Americans and non- Americans. The National Kidney Disease Education Program (NKDEP) does not endorse the use of the MDRD equation for patients that are not between the ages of 18 and 70, are , have extremes of body size, muscle mass, or nutritional status, or are non- or non-. According to the National Kidney Foundation, irrespective of diagnosis, the stage of the disease is based on the level of kidney function: Stage Description GFR(mL/min/1.73 m(2)) 1 Kidney damage with normal or decreased GFR 90 2 Kidney damage with mild decrease in GFR 60-89 3 Moderate decrease in GFR 30-59 4 Severe decrease in GFR 15-29 5 Kidney failure <15 (or dialysis) 9 Results suggest response to immunization or prior exposure to the virus. REFERENCE VALUE Vaccinated: Positive (>=1.1 AI) Unvaccinated: Negative (<=0.8 AI) 10 Test Performed by: [address] [address] 11 Results suggest response to immunization or prior exposure to the virus. REFERENCE VALUE Vaccinated: Positive (>=1.1 AI) Unvaccinated: Negative (<=0.8 AI) 12 Test Performed by: [facility] [address] [place] [address] 13 -- REFERENCE VALUE -- 25-HYDROXY D TOTAL (D2+D3) Optimum levels in the healthy population are 20-50, patients with bone disease may benefit from higher levels within this range. Test Performed by: [facility] [address] [place] [address] Gin Pole Operator: Julius Kearns III, M.D. 14 Because ethnic data is not always readily available, this report includes an eGFR for both -Americans and non- Americans. The National Kidney Disease Education Program (NKDEP) does not endorse the use of the MDRD equation for patients that are not between the ages of 18 and 70, are , have extremes of body size, muscle mass, or nutritional status, or are non- or non-. According to the National Kidney Foundation, irrespective of diagnosis, the stage of the disease is based on the level of kidney function: Stage Description GFR(mL/min/1.73 m(2)) 1 Kidney damage with normal or decreased GFR 90 2 Kidney damage with mild decrease in GFR 60-89 3 Moderate decrease in GFR 30-59 4 Severe decrease in GFR 15-29 5 Kidney failure <15 (or dialysis) Procedures Date Code Description Status 01/04/2019 22900 Omt 7-8 Body Regions Completed 09/24/2018 83449 Omt 7-8 Body Regions Completed 08/30/2018 03430 Omt 7-8 Body Regions Completed 07/19/2018 46462 Omt 3 To 4 Body Regions Involved Completed 06/18/2018 61259 Omt 7-8 Body Regions Completed 05/17/2018 75382 Omt 7-8 Body Regions Completed 04/26/2018 57529 Brief Emotional/Behav Assessment W/ Scoring Doc Per Completed Standard Inst 04/09/2018 96969 Omt 7-8 Body Regions Completed 03/01/2018 58835 Omt 3 To 4 Body Regions Involved Completed 02/22/2018 40203 Omt 3 To 4 Body Regions Involved Completed 12/08/2017 28106 Osteopathic Manipulative Treatment 1 Or 2 Body Region Completed Encounters Type Date Location Provider Dx Diagnosis Office Visit 01/04/2019 Main Office Mode Navarro, Z79.899 Other snf 11:00a D.O. (current) drug therapy M54.2 Cervicalgia R51 Headache F41.1 Generalized anxiety disorder G43.109 Migraine with aura, not intractable, w/o status migrainosus F41.0 Panic disorder [episodic paroxysmal anxiety] F41.9 Anxiety disorder, unspecified M99.05 Segmental and somatic dysfunction of pelvic region M99.03 Segmental and somatic dysfunction of lumbar region M99.04 Segmental and somatic dysfunction of sacral region M99.00 Segmental and somatic dysfunction of head region M99.02 Segmental and somatic dysfunction of thoracic region M99.01 Segmental and somatic dysfunction of cervical region M99.08 Segmental and somatic dysfunction of rib cage Office Visit 11/18/2018 2:55p Main Office Ritika Llanos, H66.92 Otitis media, PA unspecified, left ear J06.9 Acute upper respiratory infection, unspecified Office Visit 09/24/2018 8:30a Main Office Mode Navarro, Z79.899 Other snf D.O. (current) drug therapy M54.2 Cervicalgia R51 Headache M99.02 Segmental and somatic dysfunction of thoracic region M99.08 Segmental and somatic dysfunction of rib cage M99.01 Segmental and somatic dysfunction of cervical region M99.00 Segmental and somatic dysfunction of head region M99.03 Segmental and somatic dysfunction of lumbar region M99.05 Segmental and somatic dysfunction of pelvic region M99.04 Segmental and somatic dysfunction of sacral region Office Visit 08/30/2018 8:30a Main Office Mode Navarro, F41.1 Generalized anxiety D.O. disorder Z79.899 Other snf (current) drug therapy G43.109 Migraine with aura, not intractable, w/o status migrainosus M99.08 Segmental and somatic dysfunction of rib cage M99.02 Segmental and somatic dysfunction of thoracic region M99.00 Segmental and somatic dysfunction of head region M99.01 Segmental and somatic dysfunction of cervical region M99.03 Segmental and somatic dysfunction of lumbar region M99.04 Segmental and somatic dysfunction of sacral region M99.05 Segmental and somatic dysfunction of pelvic region Office Visit 07/19/2018 8:30a Main Office Mode Navarro D.O. R05 Cough M99.00 Segmental and somatic dysfunction of head region M99.01 Segmental and somatic dysfunction of cervical region M99.02 Segmental and somatic dysfunction of thoracic region M99.08 Segmental and somatic dysfunction of rib cage B30.9 Viral conjunctivitis, unspecified J01.00 Acute maxillary sinusitis, unspecified Office Visit 06/18/2018 8:30a Main Office Mode Navarro M54.81 Occipital D.O. neuralgia F41.1 Generalized anxiety disorder M54.5 Low back pain Z79.899 Other snf (current) drug therapy M99.00 Segmental and somatic dysfunction of head region M99.01 Segmental and somatic dysfunction of cervical region M99.02 Segmental and somatic dysfunction of thoracic region M99.05 Segmental and somatic dysfunction of pelvic region M99.08 Segmental and somatic dysfunction of rib cage M99.03 Segmental and somatic dysfunction of lumbar region M99.04 Segmental and somatic dysfunction of sacral region Office Visit 05/17/2018 12:55p Main Office Mode Navarro M54.81 Occipital D.O. neuralgia M99.00 Segmental and somatic dysfunction of head region M99.01 Segmental and somatic dysfunction of cervical region M99.05 Segmental and somatic dysfunction of pelvic region M99.02 Segmental and somatic dysfunction of thoracic region M99.03 Segmental and somatic dysfunction of lumbar region M99.04 Segmental and somatic dysfunction of sacral region M99.08 Segmental and somatic dysfunction of rib cage Office Visit 04/26/2018 2:15p Main Office Mode Navarro D.O. R51 Headache M54.2 Cervicalgia M54.81 Occipital neuralgia F41.1 Generalized anxiety disorder Z13.89 Encounter for screening for other disorder Office Visit 04/09/2018 11:30a Main Office Mode Navarro M54.81 Occipital D.O. neuralgia F41.1 Generalized anxiety disorder M54.5 Low back pain M99.02 Segmental and somatic dysfunction of thoracic region M99.00 Segmental and somatic dysfunction of head region M99.01 Segmental and somatic dysfunction of cervical region M99.05 Segmental and somatic dysfunction of pelvic region M99.08 Segmental and somatic dysfunction of rib cage M99.04 Segmental and somatic dysfunction of sacral region M99.03 Segmental and somatic dysfunction of lumbar region Z23 Encounter for immunization Office Visit 03/01/2018 3:30p Main Office Mode Navarro, M54.81 Occipital D.O. neuralgia F41.0 Panic disorder [episodic paroxysmal anxiety] F41.1 Generalized anxiety disorder M99.00 Segmental and somatic dysfunction of head region M99.02 Segmental and somatic dysfunction of thoracic region M99.01 Segmental and somatic dysfunction of cervical region M99.08 Segmental and somatic dysfunction of rib cage Z79.899 Other snf (current) drug therapy Office Visit 02/22/2018 2:45p Main Office Mode Navarro, F41.1 Generalized anxiety D.O. disorder R51 Headache M54.2 Cervicalgia F41.0 Panic disorder [episodic paroxysmal anxiety] M54.81 Occipital neuralgia M99.02 Segmental and somatic dysfunction of thoracic region M99.01 Segmental and somatic dysfunction of cervical region M99.00 Segmental and somatic dysfunction of head region Office Visit 12/08/2017 3:30p Main Office Mode Navarro, F41.1 Generalized anxiety D.O. disorder F41.0 Panic disorder [episodic paroxysmal anxiety] M54.2 Cervicalgia R51 Headache F41.9 Anxiety disorder, unspecified M99.01 Segmental and somatic dysfunction of cervical region M99.00 Segmental and somatic dysfunction of head region Office Visit 10/12/2017 10:15a Main Office Mode Navarro, F41.1 Generalized anxiety D.O. disorder F41.0 Panic disorder [episodic paroxysmal anxiety] M54.2 Cervicalgia R51 Headache Office Visit 07/24/2017 4:40p Main Office Jose Luis Villaseñor R51 Headache M54.2 Cervicalgia F41.9 Anxiety disorder, unspecified Office Visit 07/02/2017 11:00a Main Office Mode Navarro F41.1 Generalized anxiety D.O. disorder F41.0 Panic disorder [episodic paroxysmal anxiety] Office Visit 05/05/2016 4:30p Main Office Juan Miguel Mcneil, F41.1 Generalized anxiety M.D. disorder F41.0 Panic disorder without agoraphobia Z23 Encounter for immunization Z41.8 Encntr for oth proc for purpose oth [facility] Office Visit 04/10/2016 11:30a Main Office Mode Navarro, J20.9 Acute bronchitis, D.O. unspecified J01.00 Acute maxillary sinusitis, unspecified Office Visit 10/31/2015 4:30p Main Office Juan Miguel Mcneil, F41.1 Generalized anxiety M.D. disorder F41.0 Panic disorder without agoraphobia M79.604 Pain in right leg Office Visit 09/19/2015 11:30a Main Office Mode Navarro, J02.9 Acute pharyngitis, D.O. unspecified Office Visit 06/27/2015 3:45p Main Office Mode Navarro, R19.7 Diarrhea, D.O. unspecified Office Visit 05/04/2015 9:00a Main Office Juan Miguel Mcneil, Z23 Encounter for M.D. immunization F41.0 Panic disorder without agoraphobia F41.1 Generalized anxiety disorder M79.604 Pain in right leg Z71.89 Other specified counseling Office Visit 10/27/2014 2:30p Main Office Juan Miguel Mcneil, 300.01 Panic Disorder W/O M.D. Agoraphobia 300.02 Anxiety Disorder Generalized 706.1 Acne Other Office Visit 06/30/2014 2:45p Main Office Juan Miguel Mcneil, 300.01 Panic Disorder W/O M.D. 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 at Main Pksejt9201/04/2019 - Mode Navarro D.O.Z79.899 Other long term care administrator (current) drug eoemsauI53.2 OlnmsdmkbiwZ70 GfzdriuaY22.1 Generalized anxiety disorderFollow up: 6 weeks [facility] jjzkmymuzU76.109 Migraine with aura, not intractable, without status tbyhnlgsW80.0 Panic disorder [episodic paroxysmal anxiety]F41.9 Anxiety disorder, rkeghxjmhmzY14.05 Segmental and somatic dysfunction of pelvic zzhgpyY82.03 Segmental and somatic dysfunction of lumbar ohtiobQ33.04 Segmental and somatic dysfunction of sacral rreyuhT77.00 Segmental and somatic dysfunction of head vwhahtW91.02 Segmental and somatic dysfunction of thoracic ajpimwR00.01 Segmental and somatic dysfunction of cervical yrcbtuZ27.08 Segmental and somatic dysfunction of rib cage
--- OUTSIDE RECORDS SUMMARY | 2019-01-18 23:30 | XMS REPORT | Continuity of Care Document ---
:1985 External Reference #:[id number] Author Name Mode Navarro D.O. Address [address] [facility] [place] [address] Care Team Providers Name Role Phone HCP given Primary Care Physician Unavailable Payers Date Identification Numbers Payment Provider Subscriber Effective: Policy Number: [id number] [facility] Maggy Best 2015 Ind/Ppo/Hmo/Pos Expires: 2017 Group Name: [facility] [address] [address] PayID: [id number] [place] [address] Effective: 2017 Policy Number: [id number] [facility] Maggy Best PayID: [id number] [address] [place] [address] Problems Active Problems Provider Date Panic disorder [...] Completed College studies in Social Work at [employer] but left the program as she found it too stressful; as of 01/19 is taking graphic design classes at [employer] As of 05/05/16 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 Work Status [...] sexually active Contraceptive Methods BCP Age 1st [place] 20 Years Old # Partners in a [...] Night AT Tablets Bedtime as Directed Fluticasone [place] 2 Sprays 48units Mode Navarro, 04/09/2018 Propionate Into Each Nostril D.O. 50mcg/Act One Time Daily Suspension Fluoxetine HCL take 1 capsule 90caps Juan Miguel Mcneil, 08/27/2017 20mg every morning M.DDuran Capsules Enskyce Take 1 Tablet By Unknown [...] later Tobradex 1 drop both eyes 5ml [facility], 07/19/2018 - 0.3-0.1% Suspension three times a Mode, D.O. 07/24/2018 day for 5 days or 1 day after symptoms resolve. Augmentin 1 cap by mouth 20tabs [facility], 07/19/2018 - 875-125mg Tablets twice a day Mode, D.O. 07/29/2018 Co Q 10 1 by mouth every 90caps [facility], 03/01/2018 - 100mg Capsules day Mode, D.O. 03/01/2018 Flonase Allergy Relief 2 sprays twice a 47.400ml [facility], 12/08/2017 - day until Mode D.O. 01/07/2018 50mcg/Act Suspension better. Fluoxetine HCL 1 by mouth 45caps [facility], 10/12/2017 - 10mg Capsules alternate with Mode, D.O. 04/09/2018 20mg every other day. Clonazepam 1 tablets up to 14tabs [facility], 07/24/2017 - 0.5mg Tablets 3x/day for Samuel Bullard 12/07/2017 episodic anxiety Cyclobenzaprine HCL take 1-2 tablet 45tabs [facility], 07/24/2017 - 5mg by mouth at Samuel Bullard 01/03/2019 Tablets bedtime for back pain,will make drowsy Fluoxetine HCL 1 by mouth every 90caps [facility], 07/02/2017 - 10mg Capsules day Mode, D.O. 08/27/2017 Methylprednisolone 6 tabs on day 1; 21tabs J20.9 [facility], 04/10/2016 - 4mg then 5 tabs Mode, D.O. 05/04/2016 Tablets day2; then 4 tabs ay3; then 3 tabs day4; then 2 tabs day 5; then 1 tab day 6 Azithromycin take 2 tablets 6tabs J20.9 [facility], 04/10/2016 - 250mg Tablets by mouth one Mode, D.O. 04/15/2016 time on the first day then take 1 tablet by mouth daily for 4 days PT For Left Leg Pain please evaluate 719.46 Tarun, 06/30/2014 - (Suspected Itb Syndrome) and treatJuan Miguel M.D. 10/26/2014 instruct in hep, modalities prn Fluoxetine HCL 1 by mouth every 30caps Tarun, 01/25/2014 - 20mg Capsules day, for Samuel Bullard 07/02/2017 anxiety; appt needed before next refill Nystatin apply to 30gm 112.0 Silcoff, 01/25/2014 - 608505Vkpj/GM Cream affected area on Samuel Bullard 06/29/2014 [...] CPT Code Status Date Vaccine Lot # [id number] Given 04/09/2018 Influenza Virus Vaccine, Quadrivalent, Split, [id number] Preservative Free 93314 Given 05/21/2017 Influenza Virus Vaccine, Quadrivalent, Split, Preservative Free 25296 Given 05/05/2016 Influenza Virus Vaccine, Quadrivalent, Split, [id number] Preservative Free 92049 Given 07/09/2012 Adacel or Boostrix, TDaP 63248 Refused 05/04/2015 Influenza Vaccine Split Virus Preservative [...] Mass Index) 22.6 kg/m2 Last Menstrual Period 1036774 Results Test Date Facility Test Result H/L Range Note CBC No Diff 11/29/2018 [facility] White Blood 5.3 10^3/uL Normal 3.5- 10.8 [phone] Count Red Blood Count 4.50 10^6/uL Normal [...] fL Normal 7.4-10.4 Comp Metabolic Panel 11/29/2018 [facility] Sodium 139 mmol/L Normal 135-145 [phone] Potassium 3.9 mmol/L Normal 3.5-5.0 Chloride 106 [...] Egfr 113.6 >60 1 Laboratory test 02/22/2018 [facility] Magnesium 2.2 mg/dL Normal 1.9- 2.7 finding [phone] TSH (Thyroid Stim Horm) 2.82 mcIU/mL Normal 0.34-5.60 Vitamin B12 388 pg/mL Normal 180-914 2 Celiac Panel 02/22/2018 [facility] Tissue Transglutaminase IgA Ab <1.2 U/mL 3 [phone] Immunoglobulin A 120 mg/dL 61 - 356 Celiac Interpretation See Comment 4 Celiac Hla 02/22/2018 [facility] Hla-Dqa1 SEE BELOW 5 [phone] Hla-DQB1 SEE BELOW 6 Celiac Gene Pairs Present? No Celiac Gene Interpretation See Comment 7 Comp Metabolic Panel 02/22/2018 [facility] Sodium 137 mmol/L Normal 135-145 [phone] Potassium 3.9 mmol/L Normal 3.5-5.0 Chloride 103 [...] 116.2 >60 8 CBC Auto Diff 02/22/2018 [facility] White Blood 8.6 10^3/uL Normal 3.5-10.8 [phone] Count Red Blood Count 4.41 10^6/uL Normal [...] Blood Cells % 0.1 Mumps Igg 12/26/2016 [facility] Mumps Virus IgG Antibody Positive Normal 9 [phone] Mumps IgG Antibody Index 1.9 Normal 10 Laboratory test 12/26/2016 [facility] Rubella Immune IU/mL Normal Immune finding [phone] Screen Rubeola Measles 12/26/2016 [facility] Rubeola Positive Normal 11 Igg AB [phone] (Measles) IgG Antibody Rubeola IgG Antibody Index 4.4 Normal 12 Laboratory test finding 09/19/2015 In House Culture Throat Rapid negative Screen Culture Throat negative Vitamin D, 25 01/25/2014 [facility] 25-Hydroxy Vitamin <4.0 ng/mL Normal Hydroxy [phone] D2 25-Hydroxy Vitamin D3 42 ng/mL Normal 25-Hydroxy Vitamin D Total 42 ng/mL Normal 13 Laboratory test 01/25/2014 [facility] TSH (Thyroid 2.28 Normal 0.34- 5.60 finding [phone] Stimulating IU/mL Horm) CBC Auto Diff 01/25/2014 [facility] White Blood 4.7 Low 4.8-10.8 [phone] Count 10^3/uL Red Blood Count 4.42 10^6/uL [...] % 0 Normal Basic Metabolic Panel 01/25/2014 [facility] Sodium 138 mmol/L Normal 133-145 [phone] Potassium 3.8 mmol/L Normal 3.7-5.6 Chloride 105 [...] REFERENCE VALUE <4.0 (Negative) Test Performed by: [place] [address] 4 Negative serology. Celiac disease unlikely. However, approximately 10% of patients with celiac disease are seronegative. Also, patients who are already adhering to a gluten-free diet may be seronegative. If celiac disease is highly clinically suspected, consider HLA-DQ typing. Test Performed by: [place] [address] 5 RESULT: 05 REFERENCE VALUE Not Applicable 6 RESULT: 03:01,03:01 DQ Serologic Equivalent: 7,7 REFERENCE VALUE Not Applicable 7 The absence of HLA celiac permissive genes would make the presence of celiac disease unlikely. ADDITIONAL INFORMATION Method: Molecular typing of HLA antigens performed using reverse SSOP and/or SSP methods, reported as serological equivalents and low to medium resolution molecular values. Performing Laboratory CLIA# [id number] Test Performed by: [place] [id number] 8 Because ethnic data is not always [...] Negative (<=0.8 AI) 10 Test Performed by: [address] [address] 11 Results suggest response to immunization or prior exposure to the virus. REFERENCE VALUE Vaccinated: Positive (>=1.1 AI) Unvaccinated: Negative (<=0.8 AI) 12 Test Performed by: [facility] [address] [place] [address] 13 -- REFERENCE VALUE -- 25-HYDROXY D TOTAL (D2+D3) Optimum levels in the healthy population are 20-50, patients with bone disease may benefit from higher levels within this range. Test Performed by: [facility] [address] [place] [address] Animal Handler: Julius Kearns III, M.D. 14 Because ethnic [...] dialysis) Procedures Date Code Description Status 01/04/2019 70445 Omt 7-8 Body Regions Completed 09/24/2018 70142 Omt 7-8 Body Regions Completed 08/30/2018 15713 Omt 7-8 Body Regions Completed 07/19/2018 14857 Omt 3 To 4 Body Regions Involved Completed 06/18/2018 17268 Omt 7-8 Body Regions Completed 05/17/2018 43994 Omt 7-8 Body Regions Completed 04/26/2018 26890 Brief Emotional/Behav Assessment W/ Scoring Doc Per Completed Standard Inst 04/09/2018 26384 Omt 7-8 Body Regions Completed 03/01/2018 76354 Omt 3 To 4 Body Regions Involved Completed 02/22/2018 83031 Omt 3 To 4 Body Regions Involved Completed 12/08/2017 31488 Osteopathic Manipulative Treatment 1 Or 2 Body Region Completed Encounters Type Date Location Provider Dx Diagnosis Office Visit 01/04/2019 Main Office Mode Navarro, Z79.899 Other usp 11:00a D.O. (current) drug therapy M54.2 Cervicalgia [...] 8:30a Main Office Mode Navarro, Z79.899 Other usp D.O. (current) drug therapy M54.2 Cervicalgia R51 [...] F41.1 Generalized anxiety D.O. disorder Z79.899 Other usp (current) drug therapy G43.109 Migraine with aura, [...] disorder M54.5 Low back pain Z79.899 Other usp (current) drug therapy M99.00 Segmental and somatic [...] somatic dysfunction of rib cage Z79.899 Other usp (current) drug therapy Office Visit 02/22/2018 2:45p [...] Encntr for oth proc for purpose oth [facility] Office Visit 04/10/2016 11:30a Main Office Mode [...] am - Mode Navarro D.O. at Main Olydrw1001/04/2019 - Mode Navarro D.O.Z79.899 Other watermelon harvesting supervisor (current) drug hljmbtfX74.2 RysmnghmhxuZ66 TspupptbF82.1 Generalized anxiety disorderFollow up: 6 weeks [facility] zyjgghmoyP58.109 Migraine with aura, not intractable, without status wqmyjeavF92.0 Panic disorder [episodic paroxysmal anxiety]F41.9 Anxiety disorder, fhaodcmimwsJ09.05 Segmental and somatic dysfunction of pelvic cgfcgcB48.03 Segmental and somatic dysfunction of lumbar tneaxbC26.04 Segmental and somatic dysfunction of sacral mtlsydF55.00 Segmental and somatic dysfunction of head bgqzsqG76.02 Segmental and somatic dysfunction of thoracic tkdoisR20.01 Segmental and somatic dysfunction of cervical rjkkaiU39.08 Segmental and somatic dysfunction of rib cage
== END 2019-01-18 19:09 | disposition home or self-care (01) ==
LOC: UCEAST 18:43
DX: S50.861A Insect bite (nonvenomous) of right forearm, initial encounter (principal); W57.XXXA Bitten or stung by nonvenomous insect and other nonvenomous arthropods, initial encounter; Y92.828 Other wilderness area as the place of occurrence of the external cause; F41.9 Anxiety disorder, unspecified; F32.9 Major depressive disorder, single episode, unspecified; Z88.2 Allergy status to sulfonamides
CPT/HCPCS: 99212; A9270-GY; G0463

== ENCOUNTER 2019-08-16 22:18 | Emergency (ER) | payer OTHER ==
[2019-08-16] MEDS ORDERED: Famotidine TAB* 20 MG PO ONE (23:47)
--- NOTE | 2019-08-16 23:47 | ED ---
Allergic Reaction/Systemic - HPI Summary HPI Summary: Patient complains of pruritic rash intermittently 3 weeks, and swollen lips starting tonight at 8:30 PM after eating dinner. Patient has been evaluated by dermatology and diagnosed with urticaria, recommended to follow up with collection technician. Patient has appointment with collection technician tomorrow. Patient denies prior history of urticaria or swollen lips, shortness of breath, chest pain, new soaps, detergents, lotions, makeup, foods, supplements, medications. Medical history is none. Patient took 50 mg Benadryl at 8:30 PM tonight with no improvement in swelling of lips. - History of Current Complaint Chief Complaint: EDAllergicReaction Time Seen by Provider: 08/16/19 23:44 Hx Obtained From: Patient Hx Last Menstrual Period: 24 DAYS AGO Onset/Duration: Sudden Onset Timing: Constant Severity Currently: None Pain Intensity: 0 Pain Scale Used: 0-10 Numeric Location: Discrete @ Character: Swelling, Pruritus, Hives Alleviating Factor(s): Antihistamines Associated Signs And Symptoms: Positive: Rash. Negative: Throat Tightening - Allergies/Home Medications Allergies/Adverse Reactions: Allergies Allergy/AdvReac Type Severity Reaction Status Date / Time Sulfa (Sulfonamide Allergy Hives Verified 01/18/19 18:52 Antibiotics) Home Medications: Home Medications FLUoxetine CAP* [Prozac CAP*] 20 mg PO DAILY 12/20/13 [History Confirmed ] SUMAtriptan TAB* [Imitrex TAB*] 50 mg PO DAILY PRN 11/29/18 [History Confirmed 01/18/19] desogestreL-ethinyl estradioL [Enskyce 28 Tablet] 1 each PO DAILY 11/29/18 [ History Confirmed 01/18/19] Ibuprofen TAB* [Motrin TAB* 600 MG] 600 mg PO Q8H PRN 01/18/19 [History Confirmed 01/18/19] EPINEPHrine [Epipen 2-Danilo] 0.3 mg IM SEE INSTRUCTIONS #1 inj 08/17/19 [Rx] predniSONE 20 mg TAB [Deltasone 20 MG TAB*] 40 mg PO DAILY 5 Days #10 tab [Rx] PMH/Surg Hx/FS Hx/Imm Hx Endocrine/Hematology History: Denies: Hx Diabetes Cardiovascular History: Denies: Hx Hypertension Respiratory History: Denies: Hx Asthma History: Denies: Hx Dialysis Sensory History: Reports: Hx Contacts or Glasses Denies: Hx Deafness Opthamlomology History: Reports: Hx Contacts or Glasses EENT History: Denies: Hx Deafness Neurological History: Reports: Hx Migraine - medicated with Imitrex - Surgical History Surgery Procedure, Year, and Place: none Infectious Disease History: No Infectious Disease History: Denies: Hx Clostridium Difficile, Traveled Outside the [place] in Last 30 Days - Family History Known Family History: Positive: Other - DVTs in mother - Social History Alcohol Use: None Hx Substance Use: No Substance Use Type: Reports: None Hx Tobacco Use: No Smoking Status (MU): Never Smoked Tobacco Have You Smoked in the Last Year: No Review of Systems Constitutional: Negative Eyes: Negative ENT: Negative Cardiovascular: Negative Respiratory: Negative Gastrointestinal: Negative Genitourinary: Negative Musculoskeletal: Negative Skin: Other Neurological/Mental Status: Negative Psychological: Normal All Other Systems Reviewed And Are Negative: Yes Physical Exam - Summary Physical Exam Summary: Both upper and lower lips swollen. ENT exam normal. Large macular erythematous rash to bilateral upper back, hips and medial thighs. Nonvesicular. Blanchable. Triage Information Reviewed: Yes Vital Signs On Initial Exam: Initial Vitals Temp Pulse Resp BP Pulse Ox 99.1 F 94 20 156/96 100 08/16/19 22:20 08/16/19 22:20 08/16/19 22:20 08/16/19 22:20 08/16/19 22:20 Vital Signs Reviewed: Yes Appearance: Positive: Well-Appearing Skin: Positive: Warm Head/Face: Positive: Normal Head/Face Inspection Eyes: Positive: Normal ENT: Positive: Normal ENT inspection Neck: Positive: Supple Respiratory/Lung Sounds: Positive: Clear to Auscultation Cardiovascular: Positive: Normal Abdomen Description: Positive: Nontender Musculoskeletal: Positive: Normal Neurological: Positive: Normal Psychiatric: Positive: Normal AVPU Assessment: Alert - Adelita Coma Scale Best Eye Response: 4 - Spontaneous Best Motor Response: 6 - Obeys Commands Best Verbal Response: 5 - Oriented Coma Scale Total: 15 Procedures - Sedation Patient Received Moderate/Deep Sedation with Procedure: No Diagnostics - Vital Signs Vital Signs Temp Pulse Resp BP Pulse Ox 08/16/19 22:20 99.1 F 94 20 156/96 100 - Laboratory Lab Statement: Any lab studies that have been ordered have been reviewed, and results considered in the medical decision making process. Allergic Reaction Course/Dx - Course Course Of Treatment: Patient complains of pruritic rash intermittently 3 weeks , and swollen lips starting tonight at 8:30 PM after eating dinner. Patient has been evaluated by dermatology and diagnosed with urticaria, recommended to follow up with collection technician. Patient has appointment with collection technician tomorrow. Patient denies prior history of urticaria or swollen lips, shortness of breath, chest pain, new soaps, detergents, lotions, makeup, foods, supplements, medications. Medical history is none. Patient took 50 mg Benadryl at 8:30 PM tonight with no improvement in swelling of lips. Vital signs within normal limits. No worsening of symptoms 4 hours after onset. No immediate improvement here in the ED. Discharged home with Rx for prednisone - Diagnoses Provider Diagnoses: Allergic reaction Discharge ED - Sign-Out/Discharge Documenting (check all that apply): Patient Departure - Discharge Plan Condition: Stable Disposition: HOME Prescriptions: EPINEPHrine [Epipen 2-Danilo] 0.3 mg IM SEE INSTRUCTIONS #1 inj predniSONE 20 mg TAB [Deltasone 20 MG TAB*] 40 mg PO DAILY 5 Days #10 tab Patient Education Materials: Urticaria (ED), Allergies (ED) Forms: *Work Release Referrals: Mode Navarro DO [Primary Care Provider] - Additional Instructions: Take prednisone daily as directed for 5 days. Take Benadryl 50 mg every 6 hours. Follow-up with primary care. Return to the ED for any new or worsening symptoms. - Billing Disposition and Condition Condition: STABLE Disposition: Home
[2019-08-17] MEDS ORDERED: diPHENhydraMINE PO* 25 MG PO ONE
[2019-08-17 01:49] VITALS: BP 148/88
== END 2019-08-17 01:47 | disposition home or self-care (01) ==
LOC: ED 22:18
DX: T78.1XXA Other adverse food reactions, not elsewhere classified, initial encounter (principal); R21 Rash and other nonspecific skin eruption; X58.XXXA Exposure to other specified factors, initial encounter; Z88.2 Allergy status to sulfonamides; G43.909 Migraine, unspecified, not intractable, without status migrainosus; Z79.899 Other long term (current) drug therapy
CPT/HCPCS: 99283; A9270-GY; J7512

== ENCOUNTER 2022-04-22 18:03 | Inpatient (IN) ==
[2022-04-22] MEDS ORDERED: Buffered Lidocaine 1% SYRIN 1 ml INTRADERM ONE (19:57)
[2022-04-22] MEDS ORDERED: Lactated Ringers 1000 ml BAG 1,000 ML IV ONE (19:57)
[2022-04-22] MEDS ORDERED: Lactated Ringers 1000 ml BAG 1,000 ML IV SCH (20:00)
[2022-04-22] MEDS ORDERED: Dinoprostone 10 MG VAG.SUPP VAGINAL STA (21:34)
[2022-04-23 09:14] LABS: Urine Benzodiazepine Screen None Detected (None Detect); Urine Cannabinoids Screen None Detected (None Detect); Urine Opiates Screen None Detected (None Detect)
[2022-04-24] MEDS ORDERED: Oxytocin in LR 20,000 MILLI.UNIT/1,000 ML BAG IV SCH ×2 (01:45→23:45)
[2022-04-24 06:09] LABS: ABS Eosinophils 0.3 10^3/ul (0-0.6); ABS Lymphocytes 2.1 10^3/ul (1.0-4.8); ABS Monocytes 0.4 10^3/ul (0-0.8); Eosinophil % 3.2 %; Hematocrit 39 % (35-47); Hemoglobin 13.4 g/dL (12.0-16.0); Mean Corpuscular HGB Conc 35 g/dL (31-36); Mean Corpuscular Hemoglobin 32 pg (27-31); Mean Corpuscular Volume 94 fL (80-97); Platelet Count 160 10^3/uL (150-450); Red Blood Count 4.15 10^6 /uL (3.70-4.87); Red Cell Distribution Width 13 % (10-15); White Blood Count 7.8 10^3/uL (3.5-10.8)
[2022-04-24] MEDS ORDERED: Lidocaine 2% JELLY 6 ML Topical TOPICAL ONE (11:33)
[2022-04-24] MEDS ORDERED: EPINEPHrine Anaphylaxis SYR CERTADOSE SYR KIT IM SCH (17:23)
[2022-04-24] MEDS ORDERED: Lidocaine 1% w EPI 1:200,000 SDV 30 ML VIAL ONE (19:01)
[2022-04-24] MEDS ORDERED: OBEPIDURAL (200 ML) 200 ML EPIDURAL ONE (19:01)
[2022-04-24] MEDS ORDERED: Bupivacaine 0.25% w/EPI 10 ML SDV ONE ×2 (19:19→21:48)
[2022-04-24] MEDS ORDERED: Sodium Citrate/Citric Acid LIQ 15 ML UDC PO PRN (20:11)
[2022-04-24] MEDS ORDERED: Lactated Ringers 1000 ml BAG 1,000 ML IV ONE (20:11)
[2022-04-24] MEDS ORDERED: Phenylephrine 40 mcg/mL 10mL (400mcg) SYRINGE IV PUSH PRN (20:11)
[2022-04-24 21:00] LABS: Urine Appearance Clear; Urine Bilirubin Negative (Negative); Urine Blood Negative (Negative); Urine Color Yellow; Urine Glucose Negative (Negative); Urine Ketones Negative (Negative); Urine Nitrite Negative (Negative); Urine Protein Negative (Negative); Urine Specific Gravity 1.017 (1.002-1.030); Urine Urobilinogen Negative (Negative)
[2022-04-24] MEDS ORDERED: OBEPIDURAL (200 ML) 200 ML EPIDURAL SCH (21:00)
[2022-04-24] MEDS ORDERED: Lactated Ringers 1000 ml BAG 1,000 ML IV SCH ×2 (21:00→23:45)
[2022-04-24] MEDS ORDERED: ceFOXitin 2 GM IVPREMIX 2 GM/50 ML BAG IVPB ONE (21:33)
[2022-04-24] MEDS ORDERED: Oxytocin 10 UNITS/ML 1 ML VIAL ONE ×2 (21:49→22:46)
[2022-04-24] MEDS ORDERED: Dexamethasone IV 4 MG/ML VIAL 1 ml VIAL ONE (21:49)
[2022-04-24] MEDS ORDERED: Phenylephrine 40 mcg/mL 10mL (400mcg) SYRINGE ONE (21:49)
[2022-04-24] MEDS ORDERED: Ondansetron 4 mg VIAL 2 MG/ML 2 ml VIAL ONE (21:49)
[2022-04-24] MEDS ORDERED: Morphine PF AMP (0.5MG/ML) 5 MG/10 ML AMP ONE (22:06)
[2022-04-24] MEDS ORDERED: Acetaminophen IV 1 GM/100ML 1,000 MG/100 ML BAG IV ONE (22:54)
[2022-04-24] MEDS ORDERED: Naloxone 0.4 mg VIAL 0.4 mg/ml 1 ml VIAL IV PUSH PRN (22:59)
[2022-04-24] MEDS ORDERED: Ondansetron 4 mg VIAL 2 MG/ML 2 ml VIAL IV PRN (22:59)
[2022-04-24] MEDS ORDERED: Metoclopramide 5 MG/ML VIAL (10 mg) IV PRN (22:59)
[2022-04-24] MEDS ORDERED: Acetaminophen IV 1 GM/100ML 1,000 MG/100 ML BAG IV PRN (22:59)
[2022-04-24] MEDS ORDERED: Witch Hazel PAD JAR TOPICAL PRN (23:37)
[2022-04-24] MEDS ORDERED: Glycerin ADULT 2.4 gm SUPP PR PRN (23:37)
[2022-04-24] MEDS: Phenylephrine 40 mcg/mL 10mL (400mcg) SYRINGE IV PUSH PRN ×2 (23:53→23:59)
[2022-04-25 07:26] LABS: ABS Basophils 0.1 10^3/ul (0-0.2); ABS Lymphocytes 1.1 10^3/ul (1.0-4.8); ABS Monocytes 0.8 10^3/ul (0-0.8); ABS Neutrophils 17.2 10^3/ul (1.5-7.7); Hematocrit 33 % (35-47); Hemoglobin 11.4 g/dL (12.0-16.0); Lymphocyte % 5.6 %; Mean Corpuscular HGB Conc 34 g/dL (31-36); Mean Corpuscular Hemoglobin 32 pg (27-31); Mean Corpuscular Volume 95 fL (80-97); Platelet Count 145 10^3/uL (150-450); Red Blood Count 3.51 10^6 /uL (3.70-4.87); Red Cell Distribution Width 13 % (10-15); White Blood Count 19.1 10^3/uL (3.5-10.8)
[2022-04-26 08:40] VITALS: BP 126/77
== END 2022-04-26 12:46 | disposition home or self-care (01) | DRG 540 ==
LOC: MCHOBOUT 18:03 → MCHOB 18:09
PROVIDERS: ADMIT Registered Nurse; ATTEND Registered Nurse